=== PATIENT | male | born 1945 | race Caucasian/White ===

== ENCOUNTER 2017-07-21 10:21 | Inpatient (IN) | payer MEDICARE, OTHER, MEDICAID ==
[~2017-07-21] VITALS: Ht 172.7 cm; Wt 99.8 kg
--- NOTE | 2017-07-21 10:36 | NUR ---
YOUNG LOWRY (FROM [facility]) WHO STATES SHE IS A FRIEND OF THE PATIENT. YULY LOWRY PT IS CURRENTLY HOMELESS AND WAS REFERRED HERE BY PSYCH INTAKE FROM HIS FACILITY. PT IS A 72 YEAR Y/O MALE, AMBULATORY WITH SLOW BUT STEADY GAIT. SPEAKING IN FULL SENTENCES. NAD NOTED. VSS. HERE FOR: PSYCH CLEARANCE. PT DENIES SI/HI/AVH AT THIS TIME, HOWEVER, PT IS HOMELESS, UNABLE TO PROVIDE SELF CARE. AT BEDSIDE PERFORMING MSE. [facility] PT MILDRED NOTIFIED AT 7724
[2017-07-21] MEDS ORDERED: CLON0.5T4 PO (10:45)
[2017-07-21] MEDS ORDERED: ASPI81TA31 PO (10:45)
[2017-07-21] MEDS ORDERED: MEMA10TA PO (10:45)
[2017-07-21] MEDS ORDERED: GABA-532 PO (10:45)
[2017-07-21] MEDS ORDERED: NALO25TA PO (10:45)
[2017-07-21 10:53] LABS: BASOPHILS % (AUTO) 0.7 % (0.0-2.0); CARBON DIOXIDE 30 mmol/L (21-32); CHLORIDE 106 mmol/L (98-107); CREATININE 0.8 mg/dL (0.6-1.3); EOSINOPHILS # (AUTO) 0.1 K/uL (0.0-0.7); EOSINOPHILS % (AUTO) 2.7 % (0.0-7.0); GLUCOSE 111 mg/dL (74-106); HEMATOCRIT 44.3 % (40-50); HEMOGLOBIN 14.5 G/DL (14.0-18.0); LYMPHOCYTES # (AUTO) 1.1 K/UL (0.8-4.8); LYMPHOCYTES % (AUTO) 27.3 % (20.5-51.5); MEAN CORPUSCULAR HEMOGLOBIN 32.7 UUG (27.0-31.0); MEAN CORPUSCULAR HGB CONC 33 g/dL (32.0-37.0); MEAN CORPUSCULAR VOLUME 99.6 FL (82.0-92.0); MONOCYTES # (AUTO) 0.3 K/UL (0.1-1.30); MONOCYTES % (AUTO) 7.4 % (0.0-11.0); NEUTROPHILS # (AUTO) 2.4 K/UL (1.8-8.9); NEUTROPHILS % (AUTO) 61.9 % (38.5-71.5); PLATELET COUNT (AUTO) 135 K/UL (150-450); POTASSIUM 4.1 mmol/L (3.5-5.1); RED BLOOD CELL COUNT(AUTO) 4.44 MIL/UL (4.7-6.1); UREA NITROGEN, BLOOD 8 mg/dL (7-18); WHITE BLOOD COUNT (AUTO) 3.9 K/UL (4.0-11.2)
[2017-07-21 10:59] LABS: ACETAMINOPHEN < 2.0 ug/mL (10-30); ALANINE AMINOTRANSFERASE 163 U/L (16-63); ALKALINE PHOSPHATASE 102 U/L (50-136); ASPARTATE AMINOTRANSFERASE 87 U/L (15-37); BILIRUBIN,DIRECT 0.2 mg/dL (0.0-0.2); BILIRUBIN,TOTAL 0.5 mg/dL (0.2-1.0); TOTAL PROTEIN, SERUM 7.4 g/dL (6.4-8.2)
[2017-07-21 11:07] LABS: ETHANOL < 3 MG/DL (0-0)
--- NOTE | 2017-07-21 11:07 | NUR ---
Patient is medically cleared by Dr Calix but the patient still needs evaluation by psych limehouse worker Jun Gold.
--- NOTE | 2017-07-21 11:24 | NUR ---
MILDRED AT BEDSIDE PERFORMING EVALUATION
[2017-07-21 11:27] LABS: *BILIRUBIN,URIN NEGATIVE (NEGATIVE); *BLOOD, URINE NEGATIVE (NEGATIVE); *CLARITY,URINE CLEAR (CLEAR); *COLOR,URINE YELLOW (YELLOW); *KETONES,URINE NEGATIVE (NEGATIVE); *PROTEIN,URINE NEGATIVE (NEGATIVE); *UROBILINOGEN,URINE 0.2 E.U./dl (NORMAL); LEUKOCYTE ESTERASE ,URINE NEGATIVE (NEGATIVE); NITRITE, URINE NEGATIVE (NEGATIVE); PH,URINE 5.5 (5.0-8.0); UGLUCOSE NEGATIVE (NEGATIVE)
[2017-07-21 11:39] LABS: BACTERIA,URINE NONE SEEN /HPF (NONE SEEN); RBC,URINE NONE SEEN /HPF (0-3); SQUAMOUS EPITHELIAL CELL,UR FEW /HPF (NONE SEEN); WBC,URINE 0-3 /HPF (0-3)
[2017-07-21 11:41] LABS: *AMPHETAMINE, URINE NEGATIVE (NEGATIVE); *BARBITURATE, URINE NEGATIVE (NEGATIVE); *CANNABINOID, URINE NEGATIVE (NEGATIVE); *COCCAINE, URINE NEGATIVE (NEGATIVE); *OPIATE, URINE NEGATIVE (NEGATIVE); *PHENCYCLIDINE SCREEN,URINE NEGATIVE (NEGATIVE)
--- NOTE | 2017-07-21 14:14 | NUR ---
REPORT GIVEN TO BARRY AWARE OF PT'S CURRENT CONDITION. WILL CONTINUE PLAN OF CARE
[2017-07-21] MEDS ORDERED: MAG HYDROX/AL HYDROX/SIMETH 30 ML LIQUID UDC PO PRN ×2 (14:30→23:45)
[2017-07-21] MEDS ORDERED: ACETAMINOPHEN 325 MG TABLET PO PRN ×2 (14:30→23:45)
[2017-07-21] MEDS ORDERED: TEMAZEPAM 7.5 MG CAPSULE PO PRN ×2 (14:30→23:45)
[2017-07-21] MEDS ORDERED: LORAZEPAM 0.5 MG TABLET PO PRN (14:30)
[2017-07-21] MEDS ORDERED: MAGNESIUM HYDROXIDE 30 ML LIQUID UDC PO PRN ×2 (14:30→23:45)
--- NOTE | 2017-07-21 15:20 | NUR ---
PT WAS RECEIVED AT 1515. PT IS CALM AND COOPERATIVE. PT STATES THAT HE HAS PROBLEMS WITH ANXIETY. PT DENIES S.I. PT STATES THAT HE WAS STAYING AT A HOMELESS LONG TERM. PT HAS SWELLING AND REDNESS ON HIS LOW EXTREMITIES (HAULING CONTRACTOR WAS NOTIFIED). PT WAS COOPERATIVE WITH THE ADMISSION PROCESS. DR. BANEGAS WAS NOTIFIED.
[2017-07-21 15:32] VITALS: BP 147/74
[2017-07-21] MEDS ORDERED: METH10TA2 PO (15:48)
[2017-07-21] MEDS ORDERED: MEMANTINE HCL 10 MG TABLET PO SCH (17:00)
[2017-07-21] MEDS: GABAPENTIN 100 MG CAPSULE PO SCH ×2 (17:00→17:37)
[2017-07-21 20:12] VITALS: BP 121/69
[2017-07-21] MEDS ORDERED: LORAZEPAM 1 MG TABLET PO PRN (23:45)
[2017-07-22 07:30] VITALS: BP 145/85
[2017-07-22 07:38] LABS: BASOPHILS % (AUTO) 0.8 % (0.0-2.0); EOSINOPHILS # (AUTO) 0.1 K/uL (0.0-0.7); EOSINOPHILS % (AUTO) 3.3 % (0.0-7.0); HEMATOCRIT 41.8 % (40-50); HEMOGLOBIN 13.9 G/DL (14.0-18.0); LYMPHOCYTES # (AUTO) 1.3 K/UL (0.8-4.8); LYMPHOCYTES % (AUTO) 34.4 % (20.5-51.5); MEAN CORPUSCULAR HEMOGLOBIN 33.4 UUG (27.0-31.0); MEAN CORPUSCULAR HGB CONC 33 g/dL (32.0-37.0); MEAN CORPUSCULAR VOLUME 100.6 FL (82.0-92.0); MONOCYTES # (AUTO) 0.4 K/UL (0.1-1.30); MONOCYTES % (AUTO) 9.9 % (0.0-11.0); NEUTROPHILS # (AUTO) 1.9 K/UL (1.8-8.9); NEUTROPHILS % (AUTO) 51.6 % (38.5-71.5); PLATELET COUNT (AUTO) 120 K/UL (150-450); RED BLOOD CELL COUNT(AUTO) 4.15 MIL/UL (4.7-6.1); WHITE BLOOD COUNT (AUTO) 3.7 K/UL (4.0-11.2)
[2017-07-22] MEDS: MOVANTIK 25 MG PO SCH (07:54)
[2017-07-22 07:57] LABS: THYROID STIMULATING HORMONE 2.199 mIU/mL (0.358-3.740)
[2017-07-22 08:07] LABS: ALANINE AMINOTRANSFERASE 149 U/L (16-63); ALKALINE PHOSPHATASE 79 U/L (50-136); ASPARTATE AMINOTRANSFERASE 81 U/L (15-37); BILIRUBIN,TOTAL 0.7 mg/dL (0.2-1.0); CARBON DIOXIDE 28 mmol/L (21-32); CHLORIDE 107 mmol/L (98-107); CHOLESTEROL 172 mg/dL (<200); CREATININE 0.8 mg/dL (0.6-1.3); GLUCOSE 107 mg/dL (74-106); HDL CHOLESTEROL 60 mg/dL (40-60); MAGNESIUM 2.2 mg/dL (1.8-2.4); PHOSPHOROUS 3.3 mg/dL (2.5-4.9); POTASSIUM 4.8 mmol/L (3.5-5.1); TOTAL PROTEIN, SERUM 6.8 g/dL (6.4-8.2); TRIGLYCERIDES 97 MG/DL (30-150); UREA NITROGEN, BLOOD 9 mg/dL (7-18)
[2017-07-22] MEDS ORDERED: ASPIRIN 81 MG TAB.CHEW PO SCH (09:00)
[2017-07-22] MEDS ORDERED: Medication Not On Formulary EA (Naloxegol Oxalate (Movantik) 25 MG) PO SCH (09:00)
[2017-07-22] MEDS ORDERED: CLONAZEPAM 0.5 MG TABLET PO SCH (09:00)
[2017-07-22] MEDS ORDERED: VENLAFAXINE XR 37.5 MG CAP.SR.24H PO SCH (09:00)
[2017-07-22] MEDS ORDERED: METHADONE HCL 10 MG TABLET PO SCH (09:00)
[2017-07-22] MEDS ORDERED: DEXTROSE 50% 50 ML DISP.SYRIN IV PRN (10:45)
[2017-07-22] MEDS: BLOOD SUGAR DIAGNOSTIC 1 EACH STRIP VI SCH ×3 (11:58→20:46)
[2017-07-22] MEDS: INSULIN REGULAR, HUMAN 300 UNIT/3 ML VIAL SQ PRN (12:02)
[2017-07-22] MEDS: FUROSEMIDE 20 MG TABLET PO SCH (15:59)
[2017-07-22] MEDS: VENLAFAXINE XR 37.5 MG CAP.SR.24H PO SCH (16:02)
[2017-07-22 17:09] VITALS: BP 130/73
[2017-07-22] MEDS: CLONAZEPAM 0.5 MG TABLET PO SCH (19:47)
[2017-07-22] MEDS ORDERED: CLONAZEPAM 0.5 MG TABLET ONE (20:00)
[2017-07-22 20:27] VITALS: BP 106/59
[2017-07-23] MEDS ORDERED: METHADONE HCL 10 MG TABLET PO SCH (06:00)
[2017-07-23] MEDS: BLOOD SUGAR DIAGNOSTIC 1 EACH STRIP VI SCH ×4 (06:22→20:00)
--- NOTE | 2017-07-23 07:02 | NUR ---
GPS: REMAIN CALM AND COOPERATIVE WITH MEDS AND CARE. SLEPT 06:30 HRS THROUGH THE NIGHT.NO AGITATION NOTED THIS MORNING. BLOOD SUGAR 89MG/DL THIS AM.CONTINUE PLAN OF CARE.
[2017-07-23 07:30] VITALS: BP 167/85
[2017-07-23 07:52] LABS: CARBON DIOXIDE 34 mmol/L (21-32); CHLORIDE 105 mmol/L (98-107); CREATININE 0.9 mg/dL (0.6-1.3); GLUCOSE 103 mg/dL (74-106); UREA NITROGEN, BLOOD 11 mg/dL (7-18)
[2017-07-23] MEDS: FUROSEMIDE 20 MG TABLET PO SCH (08:31)
[2017-07-23] MEDS: VENLAFAXINE XR 37.5 MG CAP.SR.24H PO SCH ×2 (08:32→17:25)
[2017-07-23] MEDS: CLONAZEPAM 0.5 MG TABLET PO SCH ×2 (08:32→17:25)
[2017-07-23] MEDS: MOVANTIK 25 MG PO SCH (08:32)
[2017-07-23] MEDS ORDERED: hydrALAZINE HCL 25 MG TABLET PO PRN (11:00)
[2017-07-23 16:04] VITALS: BP 125/70
[2017-07-23] MEDS: INSULIN REGULAR, HUMAN 300 UNIT/3 ML VIAL SQ PRN (20:01)
--- NOTE | 2017-07-23 20:39 | NUR ---
Pt C/O ANXIETY, ATIVAN 1mg ADMINISTERED WITH GOOD EFFECT. Pt NOW RESTING COMFORTABLY, WILL CONTINUE TO MONITOR.
[2017-07-23 21:02] VITALS: BP 140/68
[2017-07-24] MEDS: METHADONE HCL 10 MG TABLET PO SCH (05:53)
[2017-07-24] MEDS: BLOOD SUGAR DIAGNOSTIC 1 EACH STRIP VI SCH ×4 (06:52→20:55)
--- NOTE | 2017-07-24 06:57 | NUR ---
RECEIVED Pt IN THE DAY ROOM WATCHING TV. A+Ox3, FAIR INSIGHT INTO SITUATION AND REASON FOR ADMISSION. BUT DENIES SI/HI/AH/VH. Pt AGREES TO CFS. Pt C/O 06/22 ANXIETY, ATIVAN 1mg ADMINISTERED WITH GOOD EFFECT. Pt IS CIRCUMSTANTIAL IN THOUGHT PROCESS AND HYPERVERBAL AND EXHIBITS FLAT AFFECT. VS STABLE, DENIES PAIN AT THIS TIME. IN NO ACUTE DISTRESS AT THIS TIME. AM BS 86.
[2017-07-24 07:43] VITALS: BP 123/86
[2017-07-24] MEDS: VENLAFAXINE XR 37.5 MG CAP.SR.24H PO SCH ×2 (08:36→16:55)
[2017-07-24] MEDS: CLONAZEPAM 0.5 MG TABLET PO SCH ×2 (08:36→16:55)
[2017-07-24] MEDS: MOVANTIK 25 MG PO SCH (08:36)
[2017-07-24] MEDS: FUROSEMIDE 20 MG TABLET PO SCH (08:36)
--- NOTE | 2017-07-24 14:56 | NUR ---
Initial DC Plan: Pt is currently homeless. Pt would like to return to [facility] [[address], [place] [address]; ], where he formerly resided. KOLBY spoke with pt's friend Patricia [[phone]] who agreed pt should return to [facility]. SW will follow up with the facility to discuss potential discharge plan. KOLBY will follow up with MD, patient, and pt's friend to discuss appropriate discharge plans. SW will form a safe and proper discharge plan.
[2017-07-24 17:37] VITALS: BP 155/89
--- NOTE | 2017-07-24 20:00 | NUR ---
Received pt sitting in day room watching TV. Pt is AOx3, pleasant upon approach. Denies any suicidal/homicidal ideations. Pt asking about blood sugar and expressed conerns, pt educated and comfort measures provided. No acute distress noted. Will continue to monitor for safety.
[2017-07-24 20:32] VITALS: BP 159/82
[2017-07-25] MEDS: METHADONE HCL 10 MG TABLET PO SCH (06:22)
[2017-07-25] MEDS: BLOOD SUGAR DIAGNOSTIC 1 EACH STRIP VI SCH ×4 (06:40→20:07)
[2017-07-25 07:30] VITALS: BP 157/79
[2017-07-25] MEDS: VENLAFAXINE XR 37.5 MG CAP.SR.24H PO SCH ×2 (08:11→16:51)
[2017-07-25] MEDS: MOVANTIK 25 MG PO SCH (08:11)
[2017-07-25] MEDS: CLONAZEPAM 0.5 MG TABLET PO SCH ×2 (08:11→16:51)
[2017-07-25] MEDS: FUROSEMIDE 20 MG TABLET PO SCH (08:11)
[2017-07-25] MEDS: AMLODIPINE 5 MG TABLET PO SCH (11:10)
[2017-07-25 16:57] VITALS: BP 152/78
[2017-07-25 20:03] VITALS: BP 145/75
[2017-07-25] MEDS: INSULIN REGULAR, HUMAN 300 UNIT/3 ML VIAL SQ PRN (20:10)
[2017-07-26] MEDS: METHADONE HCL 10 MG TABLET PO SCH (06:25)
[2017-07-26] MEDS: BLOOD SUGAR DIAGNOSTIC 1 EACH STRIP VI SCH ×2 (06:40→11:49)
--- NOTE | 2017-07-26 06:49 | NUR ---
HS BS 151, 2 UNITS REGULAR INSULIN ADMINISTERED. AM BS 89. NO AGGRESSIVE OR COMBATIVE BEHAVIORS. COMPLIANT WITH MEDICATIONS. DENIES SI/HI/AH/VH, CFS. PENDING D/C TODAY. IN NO ACUTE DISTRESS AT THIS TIME.
[2017-07-26 07:15] LABS: BASOPHILS % (AUTO) 0.6 % (0.0-2.0); EOSINOPHILS # (AUTO) 0.1 K/uL (0.0-0.7); HEMATOCRIT 46.2 % (40-50); HEMOGLOBIN 15.6 G/DL (14.0-18.0); LYMPHOCYTES # (AUTO) 1.8 K/UL (0.8-4.8); LYMPHOCYTES % (AUTO) 33.6 % (20.5-51.5); MEAN CORPUSCULAR HGB CONC 34 g/dL (32.0-37.0); MEAN CORPUSCULAR VOLUME 100.6 FL (82.0-92.0); MONOCYTES # (AUTO) 0.6 K/UL (0.1-1.30); MONOCYTES % (AUTO) 11.7 % (0.0-11.0); NEUTROPHILS % (AUTO) 52.1 % (38.5-71.5); PLATELET COUNT (AUTO) 138 K/UL (150-450); RED BLOOD CELL COUNT(AUTO) 4.59 MIL/UL (4.7-6.1); WHITE BLOOD COUNT (AUTO) 5.5 K/UL (4.0-11.2)
[2017-07-26 07:24] LABS: ALANINE AMINOTRANSFERASE 167 U/L (16-63); ALKALINE PHOSPHATASE 79 U/L (50-136); ASPARTATE AMINOTRANSFERASE 93 U/L (15-37); CARBON DIOXIDE 35 mmol/L (21-32); CHLORIDE 106 mmol/L (98-107); GLUCOSE 89 mg/dL (74-106); MAGNESIUM 2.3 mg/dL (1.8-2.4); PHOSPHOROUS 3.6 mg/dL (2.5-4.9); TOTAL PROTEIN, SERUM 7.5 g/dL (6.4-8.2); UREA NITROGEN, BLOOD 13 mg/dL (7-18)
[2017-07-26 07:30] VITALS: BP 138/85
[2017-07-26] MEDS: MOVANTIK 25 MG PO SCH (09:00)
[2017-07-26] MEDS: AMLODIPINE 5 MG TABLET PO SCH (09:01)
[2017-07-26] MEDS: CLONAZEPAM 0.5 MG TABLET PO SCH (09:02)
[2017-07-26] MEDS: VENLAFAXINE XR 37.5 MG CAP.SR.24H PO SCH (09:02)
[2017-07-26] MEDS: FUROSEMIDE 20 MG TABLET PO SCH (09:03)
--- NOTE | 2017-07-26 10:03 | NUR ---
PATIENT IS FOR DISCHARGE TODAY TO [facility] HE IS AWARE AWAITING FOR DISCHARGE ORDER FROM THE PSYCHIATRIST
--- NOTE | 2017-07-26 10:12 | NUR ---
DC Note: Patient will be discharged to [facility] [[address], [place] [address]; ] via private transport at 3pm. Patient will be picked up by [facility]. KOLBY spoke with pillowcase turner Leola at [facility] to confirm discharge plans and transportation. Patient is aware and agreeable to discharge plan. KOLBY spoke to pt's friend Patricia Nunez [[phone]] who is aware and agreeable to discharge plan. Pt will follow up with Dr. Bhardwaj (Clinical Research Coordinator) and Dr. Matias (Psychiatrist). Pt was provided a brief substance abuse intervention and was given referrals for [facility] [[phone]], [facility] [[phone]], and [facility] [[phone]].
--- NOTE | 2017-07-26 10:25 | NUR ---
DR BANEGAS HERE AND SEEN PATIENT WITH ORDER TO DISCHARGE PATIENT TODAY TO [facility].
--- NOTE | 2017-07-26 13:30 | NUR ---
CALLED [facility] AND REPORT GIVEN TO ALEXI BERNARD FOR CONTINUING CARE.
[2017-07-26 15:10] VITALS: BP 146/71
--- NOTE | 2017-07-26 15:50 | NUR ---
PATIENT DISCHARGED TO [facility] PICKED UP BY THE FACILITY ENGRAVER AUTOMATIC IN SATISFACTORY CONDITION WITH ALL HIS PERSONAL BELONGINGS AND ALL HIS MEDICATIONS INCLUDING HIS MEDICATIONS AND METHADONE PLUS MONEY AND OTHER PERSONAL BELONGINGS AND SIGNED OUT FOR THEM SEE THE INVENTORY FORM FOR THE COMPLETE LISTS.
== END 2017-07-26 15:50 | DRG 885 ==
LOC: ER 10:21 → GPS 13:36
PROVIDERS: ADMIT Psychiatry & Neurology Psychosomatic Medicine; ATTEND Internal Medicine
DX: F33.2 Major depressive disorder, recurrent severe without psychotic features (principal); E44.0 Moderate protein-calorie malnutrition; R45.851 Suicidal ideations; D69.6 Thrombocytopenia, unspecified; E11.9 Type 2 diabetes mellitus without complications; K76.0 Fatty (change of) liver, not elsewhere classified; D53.9 Nutritional anemia, unspecified; E66.9 Obesity, unspecified; D72.819 Decreased white blood cell count, unspecified; F41.9 Anxiety disorder, unspecified; G89.29 Other chronic pain; K58.9 Irritable bowel syndrome, unspecified; Z79.899 Other long term (current) drug therapy; Z86.718 Personal history of other venous thrombosis and embolism; Z87.442 Personal history of urinary calculi; Z87.891 Personal history of nicotine dependence; Z88.0 Allergy status to penicillin; R74.0 Nonspecific elevation of levels of transaminase and lactic acid dehydrogenase [LDH]; Z86.19 Personal history of other infectious and parasitic diseases; Z59.0 Homelessness; F10.21 Alcohol dependence, in remission; F19.90 Other psychoactive substance use, unspecified, uncomplicated; Z68.33 Body mass index [BMI] 33.0-33.9, adult; R93.421 Abnormal radiologic findings on diagnostic imaging of right kidney; I20.8 Other forms of angina pectoris
CPT/HCPCS: 36415; 76705; 80307; 83735; 84100; 84443; 85025; 93005; A4663; G0480; G0480-TC; J1815